=== PATIENT | male | born 1990 | race African-American/Black ===

== ENCOUNTER 2017-11-12 18:31 | Emergency (ER) | payer SELFPAY ==
[2017-11-12 19:02] VITALS: BP 122/74
[2017-11-12] MEDS ORDERED: METRONIDAZOLE 500 MG TABLET PO ONE (19:20)
[2017-11-12] MEDS ORDERED: AZITHROMYCIN 250 MG TABLET PO ONE (19:20)
[2017-11-12] MEDS ORDERED: CEFTRIAXONE INJ 250 MG VIAL IM ONE (19:20)
[2017-11-12] MEDS ORDERED: LIDOCAINE 1% INJ-PF (10 MG/ML) 30 ML SDV INFIL ONE (19:20)
--- NOTE | 2017-11-12 19:26 | ER Document Report ---
ED GI/ - General Chief Complaint: STD Exposure Stated Complaint: STD CHECK Time Seen by Provider: 11/12/17 19:08 Mode of Arrival: Ambulatory Information source: Patient TRAVEL OUTSIDE OF THE [place] IN LAST 30 DAYS: No - HPI Patient complains to provider of: Other - trich exposure Notes: 11/12/17 19:22 Patient is here with complaints of being exposed to trichomonas. He states that his girlfriend was at the health department and diagnosed and treated and he is here to be treated. He complains of some mild burning when he urinates but denies any discharge. He denies any abdominal pain. He denies any nausea, vomiting, diarrhea. No fever. No chest pain or shortness breath. No numbness , tingling, weakness. He has no other complaints at this time. - Related Data Allergies/Adverse Reactions: No Known Allergies Allergy (Verified 11/12/17 18:37) Past Medical History - Social History Smoking Status: Unknown if Ever Smoked Family History: Reviewed & Not Pertinent - Past Medical History Cardiac Medical History: Denies: Hx Coronary Artery Disease Past Surgical History: Reports: Hx Tonsillectomy Review of Systems - Review of Systems -: Yes All other systems reviewed and negative Physical Exam - Vital signs Vitals: Temp Pulse Resp BP Pulse Ox 98.3 F 74 16 122/74 98 11/12/17 19:01 11/12/17 19:01 11/12/17 19:01 11/12/17 19:01 11/12/17 19:01 - Notes Notes: GENERAL: alert, cooperative, nontoxic, no distress. HEAD: normocephalic, atraumatic EYES: conjunctiva pink without discharge, no external redness or swelling. EARS: no external swelling, no external redness NOSE: atraumatic, no external swelling MOUTH/THROAT: mucous membranes moist and pink, posterior pharynx without erythema, swelling, exudate. No trismus or drooling. NECK: soft, supple, full range of motion, no meningismus. CHEST: no distress, lungs clear and equal throughout. No wheezing, rales, rhonchi. CARDIAC: regular rate and rhythm, no murmur, normal capillary refill, normal pulses. No peripheral edema noted. ABDOMEN: Soft, nontender. BACK: full range of motion, no CVA tenderness. EXTREMITIES: full range of motion of all extremities. No redness, no swelling. NEURO: alert and oriented x 3, no focal deficits, full range of motion of all extremities. PYSCH: appropriate mood, affect. Patient is cooperative. SKIN: pink, warm, dry, no rash. : Circumcised penis. No penile discharge. Testicles with no tenderness. No mass. Scrotal skin normal. Course - Re-evaluation Re-evalutation: 11/12/17 19:24 Patient is nontoxic appearing stable vitals. Is here because his girlfriend was diagnosed with trichomonas and he would like to be tested and treated. He does complain of some mild burning when he urinates. No discharge. He has a benign exam. No abdominal tenderness. Vitals are stable. Patient gave us a urine here to test for gonorrhea and chlamydia, this is currently pending at this time. He will be given 2 g of Flagyl, a gram of Zithromax, 250 mg of Rocephin here in the emergency department. He was instructed to avoid sexual contact for at least 1 week. Follow-up for worsening symptoms, high fever, abdominal pain, persistent vomiting, or for any further concerns. The patient is noted to have elevated blood pressure during today's emergency department visit. The patient was informed of this finding. The patient was instructed that this may be related to pre-hypertension and requires further evaluation with a primary care provider. The patient has no hypertensive symptoms at this time. The patient's emergency department workup and current diagnosis were explained to the patient and or family. Follow-up instructions were provided. Medications if prescribed were discussed. Instructions for when to return to the emergency department including specific worrisome symptoms were discussed with the patient and/or family. - Vital Signs Vital signs: Temp Pulse Resp BP Pulse Ox 98.3 F 74 16 122/74 98 11/12/17 19:01 11/12/17 19:01 11/12/17 19:01 11/12/17 19:01 11/12/17 19:01 Discharge - Discharge Clinical Impression: Trichomonas exposure Condition: Stable Disposition: HOME, SELF-CARE Instructions: Trichomonas Infection ([facility]) Additional Instructions: No sex for 1 week. Drink plenty fluids. Always use condoms. See your family doctor or the health department for HIV and syphilis testing. Follow-up for worsening pain, high fever, persistent vomiting, or for any further concerns. Your blood pressure was elevated during today's visit. Have this rechecked with your doctor. Forms: Elevated Blood Pressure Referrals: [facility] [Provider Group] - Follow up as needed
[2017-11-12 22:19] LABS: CHLAM PCR NOT DETECTED (NOT DETECT); GON PCR NOT DETECTED (NOT DETECT)
== END 2017-11-12 19:49 | disposition home or self-care (01) ==
LOC: ER 18:31
DX: Z20.2 Contact with and (suspected) exposure to infections with a predominantly sexual mode of transmission (principal); R30.9 Painful micturition, unspecified; R03.0 Elevated blood-pressure reading, without diagnosis of hypertension
CPT/HCPCS: 99283; 96372; 87491; 87591; J3490; J0696

== ENCOUNTER 2019-01-25 22:20 | Emergency (ER) | payer SELFPAY ==
[2019-01-25 23:04] VITALS: BP 134/79
[2019-01-26] MEDS ORDERED: IBUPROFEN 800 MG TABLET PO ONE (00:03)
[2019-01-26] MEDS ORDERED: AMOXICILLIN TRIHYDRATE 500 MG CAPSULE PO ONE (00:04)
[2019-01-26] MEDS ORDERED: HYDROCODONE/ACETAMINOPHEN 5-325 MG TABLET PO ONE (00:04)
[2019-01-26] MEDS ORDERED: HYDROCODONE/ACETAMINOPHEN 5-325 MG (6 TAB/ER DISP) PO PRN (00:04)
--- NOTE | 2019-01-26 00:08 | ER Document Report ---
ED General - General Chief Complaint: Jaw Pain Stated Complaint: FACIAL SWELLING Time Seen by Provider: 01/26/19 00:03 Mode of Arrival: Ambulatory Information source: Patient TRAVEL OUTSIDE OF THE [place] IN LAST 30 DAYS: No - HPI Patient complains to provider of: Left upper jaw pain, swelling, fever Onset: Last week Onset/Duration: Persistent, Worse Severity: Moderate Pain Level: 3 Associated symptoms: None Exacerbated by: Denies Relieved by: Denies Similar symptoms previously: No Recently seen / treated by doctor: No Notes: 28-year-old -[place] male coming in today with left upper jaw swelling. Getting worse for the past couple of days. Tasted bad taste in his mouth coming from that area. Had some subjective fevers per girlfriend but none measured. No chronic medical problems. - Related Data Allergies/Adverse Reactions: No Known Allergies Allergy (Verified 11/12/17 18:37) Past Medical History - General Information source: Patient - Social History Smoking Status: Smoker,Current Status Unk Family History: Reviewed & Not Pertinent - Past Medical History Cardiac Medical History: Denies: Hx Coronary Artery Disease Renal/ Medical History: Denies: Hx Peritoneal Dialysis Past Surgical History: Reports: Hx Tonsillectomy Review of Systems - Review of Systems Notes: Constitutional: No fevers. No chills. EENT: Positive for toothache, positive for swelling Cardiovascular: No chest pain. No palpitations. Respiratory: No cough. No shortness of breath. No respiratory distress. Gastrointestinal: No abdominal pain. No nausea, vomiting, or diarrhea. Genitourinary: Atraumatic. No lesions. No pain. No discharge. Musculoskeletal: Atraumatic. No swelling. No deformities. Skin: No rash or lesions. Lymphatic: No swollen lymph nodes. Neurologic: No headache. No syncope. Psychiatric: No suicidal or homicidal ideation. Physical Exam - Vital signs Vitals: Temp Pulse Resp BP Pulse Ox 98.2 F 81 20 134/79 H 98 01/25/19 22:57 01/25/19 22:57 01/25/19 22:57 01/25/19 22:57 01/25/19 22:57 - Notes Notes: Swelling of the gum up around the left upper posterior most molar. No visible swelling. No visible abscess. No trismus. No drooling. No submandibular or sublingual swelling. No dysphonia dyspnea or dysphagia. Course - Vital Signs Vital signs: Temp Pulse Resp BP Pulse Ox 98.2 F 81 20 134/79 H 98 01/25/19 22:57 01/25/19 22:57 01/25/19 22:57 01/25/19 22:57 01/25/19 22:57 Discharge - Discharge Clinical Impression: Dental abscess Condition: Good Disposition: HOME, SELF-CARE Instructions: Oral Narcotic Medication ([facility]), Abscess ([facility]) Additional Instructions: Call the [facility] on Sunday. Continue taking antibiotics as directed until complete. Ibuprofen or naproxen sodium available [id number] for throbbing or swelling. You will be getting stronger pain medication to help you during the first couple days of your treatment. Use this medication if and only if you are not driving or operating equipment. It can cause sedation as well. Use this for moderately severe pain Prescriptions: Amoxicillin 1 tab PO TID #30 tab Forms: Elevated Blood Pressure Referrals: [facility] [Provider Group] - Follow up as needed
== END 2019-01-26 01:10 | disposition home or self-care (01) ==
LOC: ER 22:20
DX: K04.7 Periapical abscess without sinus (principal); R68.84 Jaw pain; R50.9 Fever, unspecified
CPT/HCPCS: 99282